=== PATIENT | male | born 1955 | race Caucasian/White ===

== ENCOUNTER 2018-11-07 07:22 | Day surgery (SDC) | payer BC | END 2018-11-07 12:55 | disposition home or self-care (01) | LOC: FASU 07:22 ==

== ENCOUNTER 2019-07-17 07:34 | Day surgery (SDC) | payer OTHER, BC ==
[2019-07-04 12:13] VITALS: BMI 30.1
--- NOTE | 2019-07-09 13:28 | PREOP ---
DATE OF ADMISSION: 07/17/2019 DATE OF DICTATION: 07/02/2019 Patient to be admitted through the [facility]. HISTORY: This is a 62-year-old man, admitted to the ambulatory suite of [facility] for excision of a right chest wall mass. According to the patient, the mass has been present for a number of years, but has become progressively larger in size. There are no symptoms related to the mass. PAST MEDICAL HISTORY: Significant for hypercholesterolemia, diabetes, and arthritis. There is no history of heart disease, hypertension, respiratory, renal or hepatic insufficiency. PAST SURGICAL HISTORY: Nil. ALLERGIES: Penicillin. CURRENT MEDICATIONS: Metformin, Crestor, MVI. SOCIAL HISTORY: Positive tobacco of 1/2 a pack per day. Occasional alcohol. FAMILY HISTORY: Nil. REVIEW OF SYSTEMS: Nil. PHYSICAL EXAMINATION: On examination, the patient has a 2.5-cm mass of the anterior right chest wall, beneath the right clavicle. The mass is intimately associated with the overlying skin, as well as some of the underlying subcutaneous tissue. It is not fixed at the deeper planes. There are no satellite lesions. There is no regional lymphadenopathy. IMPRESSION: Right chest wall mass. Differential diagnosis would include squamous cell carcinoma, keratoacanthoma, keloid. PLAN: Excision of right chest wall mass. Indications, alternatives, possible complications were reviewed. Consent obtained. Patient will be seen preoperatively by Dr. Zeb Gar of the medical service, so please refer to his notes for those medical details. TELLY WALKER M.D. [id number] CC: Zeb Gar M.D. MTDD
[2019-07-17] MEDS ORDERED: MIDAZOLAM HCL 2 MG/2 ML SINGLE DOSE VIAL ONE (09:59)
[2019-07-17] MEDS ORDERED: LIDOCAINE 1%/EPI 1:100000 (20 ML MULTI DOSE VIAL) ONE (10:30)
[2019-07-17] MEDS ORDERED: LIDOCAINE 1%/EPI 1:100000 (20 ML MULTI DOSE VIAL) INF ONE ×2 (10:46)
[2019-07-17] MEDS ORDERED: PROPOFOL 20 ML ONE ×2 (11:00)
[2019-07-17] MEDS ORDERED: BACITRACIN 15 GM TUBE TOPICAL OINTMENT ONE (11:01)
[2019-07-17 11:59] VITALS: TEMP 97.6
[2019-07-17 12:03] VITALS: BP 148/83; PULSE 76
[2019-07-17] MEDS ORDERED: ONDANSETRON 4 MG/2 ML VIAL IVPUSH PRN (12:50)
[2019-07-17] MEDS ORDERED: ACETAMINOPHEN 325 MG TABLET (FP) PO PRN (12:50)
[2019-07-17] MEDS ORDERED: oxyCODONE HCL 5 MG TABLET PO PRN ×2 (12:50)
[2019-07-17] MEDS ORDERED: LACTATED RINGERS SOLUTION 1,000 ML IV SCH (13:00)
--- NOTE | 2019-07-17 21:47 | OP ---
DATE OF OPERATION: 07/17/2019 PREOPERATIVE DIAGNOSIS: Right chest wall mass/neoplasia. POSTOPERATIVE DIAGNOSIS: Right chest wall mass/neoplasia (final pathology pending). PROCEDURE: Excision, right chest wall neoplasia/intermediate wound closure (8 cm). OPERATING SURGEON: Gerardo Souza MD ANESTHESIA: Lidocaine 1% with epinephrine (20 mL)/monitored anesthesia care. HISTORY: A 63-year-old man who presents for an enlarging soft tissue mass emanating from the upper aspect of the right chest wall and suspicious for a squamous cell carcinoma. Patient presents for formal excision of the lesion with primary closure. Indications, alternatives, possible complications reviewed. Consent obtained. DESCRIPTION OF PROCEDURE: With the patient in the supine position, after IV sedation, the right upper chest wall was prepped and draped in usual sterile fashion using chlorhexidine. An 8-cm elliptical incision was made about the lesion after placement of local anesthesia as a field block. The incision was deepened into the subcutaneous space. The lesion was excised in its entirety with a rim of surrounding normal-appearing skin as well as underlying subcutaneous fat. The excision was deepened to the level of the fascia of the underlying pectoralis musculature. After delivery of the lesion, the wound was irrigated and adequate hemostasis ensured. The 8-cm wound was closed in a layered fashion, first approximating the deeper subcutaneous tissues using interrupted 3-0 chromic sutures. Subcuticular layer was approximated with interrupted 4-0 Biosyn sutures. The skin edges were approximated using continuous 5-0 nylon suture. Bacitracin and dressing applied. Procedure terminated. Needle, sponge, and instrument count correct. ESTIMATED BLOOD LOSS: Minimal. SPECIMEN: Soft tissue and neoplasia, right chest wall. DRAINS: None. Patient tolerated the procedure. Procedure was terminated. GERARDO SOUZA M.D. [id number]
--- NOTE | 2019-07-22 15:04 | PATH ---
Surgical Pathology Report Patient Name: VICKY MARCOS Med. Rec. #: [id number] /Age/Gender: 1955 (Age: 63) / M Account: [id number] Location: [facility] Taken: 07/17/2019 Received: 07/17/2019 Reported: 07/22/2019 Physicians: Gerardo Souza M.D. Specimen(s) Received RIGHT CHEST WALL MASS Clinical History Mass right chest wall Final Diagnosis RIGHT CHEST WALL MASS, EXCISION COLON BASAL CELL CARCINOMA, NODULAR TYPE, MEASURING 1.8 CM IN GREATEST DIMENSION. SURGICAL MARGINS ARE NEGATIVE FOR CARCINOMA. Comment: Immunohistochemical stained slides demonstrate tumor cells to be positive for P63, Bcl-2, and KATHYA, while negative for synaptophysin, chromogranin A, and PATRIC. The morphology and immunophenotype support a diagnosis of basal cell carcinoma. Immunohistochemistry stains PATRIC and BCL-2 performed at [place], [place] ([id number]) interpreted at [facility]. Immunohistochemistry stains P63, synaptophysin, chromogranin A, and KATHYA performed and interpreted at [facility]. Positive and negative controls (internal if applicable) show appropriate results. Intradepartmental case reviewed with concordance on diagnosis. Electronically Signed Supriya Kaye M.D. Addendum Reported: 07/25/[address] Souza's office confirmed receipt of faxed report, 07/25/19. Supriya Kaye M.D. Gross Description Received in formalin labeled "mass right chest wall," is a 5.8 x 2.7 cm montaño, elliptical, unoriented portion of skin excised to depth of 1.7 cm. The epidermal surface displays a 1.8 x 1.7 cm montaño, raised, centrally ulcerated lesion. The lesion is 0.4 cm from the closest radial margin. The specimen is inked blue and serially sectioned. Sectioning reveals a montaño, solid mass focally at 0.4 cm from the deep margin. Crowning Inspector sections are submitted in 7 cassettes as follows: 1-undesignated tips; [id number] and sequentially submitted lesion. DL/07/18/2019 saudi/07/18/2019
== END 2019-07-17 12:05 | disposition home or self-care (01) ==
LOC: FASU 07:34
PROVIDERS: ATTEND Surgery
PROC: 0JB60ZZ Excision of Chest Subcutaneous Tissue and Fascia, Open Approach (ICD-10-PCS; principal; 2019-07-17 09:00)
DX: C44.519 Basal cell carcinoma of skin of other part of trunk (principal)
CPT/HCPCS: 82962; 88305-TC; 88341-TC; 88342-TC